=== PATIENT | male | born 1980 | race Caucasian/White ===

== ENCOUNTER 2017-07-04 08:14 | Emergency (ER) | payer BC, OTHER ==
--- NOTE | 2017-07-04 18:19 | CR ---
EXAMINATION: Left foot and ankle HISTORY: Pain COMPARISON: None TECHNIQUE: 3 views of the left foot and 3 views of the left ankle FINDINGS: There is no acute osseous abnormality, dislocation, or fracture. Bone mineralization and kaley int spaces appear normal. No soft tissue swelling. Accessory navicular ossification noted. IMPRESSION: No acute osseous abnormality identified.
== END 2017-07-04 10:00 | disposition home or self-care (01) ==
LOC: MW.ED 08:14
DX: M25.572 Pain in left ankle and joints of left foot (principal)
CPT/HCPCS: 73610-26-LT; 73610-LT; 73630-26-LT; 73630-LT; 99282; 99283

== ENCOUNTER 2020-05-16 11:16 | Emergency (ER) | payer MEDICAID ==
[2020-05-16] MEDS ORDERED: Ondansetron 4 MG/2 ML SDV IVPUSH ONE (11:24)
[2020-05-16] MEDS ORDERED: Sodium Chloride 0.9% 1,000 ML IV ONE (11:24)
[2020-05-16] MEDS ORDERED: Magnesium Oxide 400 MG Tab PO ONE (11:31)
[2020-05-16] MEDS ORDERED: diphenhydrAMINE 50 MG/ML SDV IVPUSH ONE (11:51)
--- NOTE | 2020-05-16 12:02 | EDM.PDOC ---
ED HPI GENERAL MEDICAL PROBLEM - General Chief Complaint: Headache Stated Complaint: HEADACHE Time Seen by Provider: 05/16/20 11:23 Source of Information: Reports: Patient History Limitations: Reports: No Limitations - History of Present Illness INITIAL COMMENTS - FREE TEXT/NARRATIVE: Patient presents reporting reversible vasoconstriction syndrome headache. He states he first experienced headaches 6 months ago. He was seen by neurology and diagnosed with the syndrome. In the interim he has had the thunderclap headaches often and at least 6 times has been seen in the emergency room. He usually takes verapamil 20 mg daily along with magnesium daily. He also smokes marijuana on a regular basis. He is from [place] here hunting and got picked up due to having some marijuana on his person. Stress often triggers the headaches. Most of the time if he practices self calming, takes a walk and is able to relieve his anxiety the headache will resolve spontaneously. Today, because he is in custody was not able to use his calming techniques. The headache is accompanied by severe photophobia and off-and-on nausea. He did take his verapamil 20 mg this morning but not the magnesium tablet that he usually takes. Otherwise healthy without chronic medical problems. Does not smoke, occasional social alcohol use, no recreational drugs except for marijuana. Headache Pain Score (Numeric/FACES): 7 - Related Data Allergies Allergy/AdvReac Type Severity Reaction Status Date / Time aspirin Allergy Lethargy Verified 05/16/20 12:16 Home Meds: Home Meds Magnesium 250 mg PO DAILY 05/16/20 [History] Verapamil [Calan] 20 mg PO DAILY 05/16/20 [History] Past Medical History Neurological History: Reports: Other (See Below) Other Neuro History: RCVD Psychiatric History: Reports: Anxiety - Infectious Disease History Infectious Disease History: Reports: None - Past Surgical History Musculoskeletal Surgical History: Reports: Shoulder Surgery Other Musculoskeletal Surgeries/Procedures:: 2012 Social & Family History - Family History Family Medical History: Noncontributory - Tobacco Use Tobacco Use Status *Q: Former Tobacco User Used Tobacco, but Quit: Yes Month/Year Tobacco Last Used: september 2019 - Recreational Drug Use Recreational Drug Use: Yes Drug Use in Last 12 Months: Yes Recreational Drug Type: Reports: Marijuana/Hashish Recreational Drug Use Frequency: Daily ED ROS GENERAL - Review of Systems Review Of Systems: Comprehensive ROS is negative, except as noted in HPI. - Physical Exam Exam: See Below Exam Limited By: No Limitations General Appearance: Alert, Moderate Distress (due to headache and photophobia) Eye Exam: Bilateral Eye: EOMI, PERRL Ears: Normal External Exam Nose: Normal Inspection Throat/Mouth: Normal Inspection Head Exam: Atraumatic, Normocephalic Neck: Normal Inspection, Full Range of Motion Respiratory/Chest: No Respiratory Distress, Lungs Clear, Normal Breath Sounds Cardiovascular: Normal Peripheral Pulses, Regular Rate, Rhythm, No Edema, No Murmur Neuro Exam (Abbreviated): Alert, Oriented, CN II-XII Intact, Normal Cognition, Normal Gait (up to bathroom), No Motor/Sensory Deficits Back Exam: Normal Inspection Extremities: Normal Inspection Psychiatric: Normal Affect, Anxious (mild) Skin Exam: Warm, Dry, Intact, Normal Color, No Rash Course - Vital Signs Last Recorded V/S: Last Vital Signs Temp 36.1 C 05/16/20 11:29 Pulse 76 05/16/20 11:29 Resp 18 05/16/20 11:29 BP 92/64 05/16/20 11:29 Pulse Ox 97 05/16/20 11:29 - Orders/Labs/Meds Meds: Medications Discontinued Medications Generic Name Dose Route Start Last Admin Trade Name Kiranq PRN Reason Stop Dose Admin Diphenhydramine HCl 50 mg 05/16/20 11:51 05/16/20 12:17 Benadryl IVPUSH 05/16/20 11:52 50 mg ONETIME ONE Administration Sodium Chloride 1,000 mls @ 999 mls/hr 05/16/20 11:24 05/16/20 12:15 Normal Saline IV 05/16/20 12:24 999 mls/hr .Bolus ONE Administration Ketorolac Tromethamine 30 mg 05/16/20 12:17 05/16/20 13:10 Toradol IVPUSH 05/16/20 12:18 30 mg ONETIME ONE Administration Magnesium Oxide 800 mg 05/16/20 11:31 05/16/20 12:32 Magnesium Oxide PO 05/16/20 11:32 800 mg ONETIME ONE Administration Ondansetron HCl 4 mg 05/16/20 11:24 05/16/20 12:16 Zofran IVPUSH 05/16/20 11:25 4 mg ONETIME ONE Administration - Re-Assessments/Exams Free Text/Narrative Re-Assessment/Exam: 05/16/20 13:22 And states that his symptoms resolved. 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 [Outside] [facility] [Outside] Forms: ED Department Discharge Additional Instructions: The following information is given to patients seen in the emergency department who are being discharged to home. This information is to outline your options for follow-up care. We provide all patients seen in our emergency department with a follow-up referral. The need for follow-up, as well as the timing and circumstances, are variable depending upon the specifics of your emergency department visit. If you don't have a primary care physician on staff, we will provide you with a referral. We always advise you to contact your personal physician following an emergency department visit to inform them of the circumstance of the visit and for follow-up with them and/or the need for any referrals to a consulting specialist. The emergency department will also refer you to a specialist when appropriate. This referral assures that you have the opportunity for follow-up care with a specialist. All of these measure are taken in an effort to provide you with optimal care, which includes your follow-up. Under all circumstances we always encourage you to contact your private physician who remains a resource for coordinating your care. When calling for follow-up care, please make the office aware that this follow-up is from your recent emergency room visit. If for any reason you are refused follow-up, please contact the [facility] Emergency Department at and asked to speak to the emergency department charge nurse. [facility] - Primary Care [address] [place] [id number] [address] [id number] 1. Follow up with your neurologist 2. Take your verapamil and magnesium daily 3. Your relaxation techniques should headache recur Sepsis Event Note (ED) - Evaluation Sepsis Screening Result: No Definite Risk - Focused Exam Vital Signs: Vital Signs Temp Pulse Resp BP Pulse Ox 05/16/20 11:29 36.1 C 76 18 92/64 97
[2020-05-16] MEDS ORDERED: Ketorolac 30 MG/ML SDV IVPUSH ONE (12:17)
== END 2020-05-16 13:41 ==
LOC: MW.ED 11:16
DX: I67.841 Reversible cerebrovascular vasoconstriction syndrome (principal); Z88.8 Allergy status to other drugs, medicaments and biological substances; Z87.891 Personal history of nicotine dependence
CPT/HCPCS: 96374; 96375; 99284; A9270; J1200; J1885; J2405; J7030; 99283